=== PATIENT | male | born 1965 | race Hispanic/Latino ===

== ENCOUNTER 2019-01-13 20:02 | Emergency (ER) | payer SELFPAY ==
[2019-01-13] MEDS ORDERED: NA CHLORIDE 0.9% 1,000 ML ONE (21:33)
[2019-01-13 21:58] LABS: Absolute Lymphocytes (CBC) 2.1 K/uL (0.7-4.9); Absolute Neutrophil 6.4 K/uL (1.8-8.0); Basophils % 0.5 % (0-1.3); Eosinophils % 1.1 % (0-4.4); Lymphocytes % 21.4 % (15.3-44.8); MPV 10.8 fL (7.6-11.3); Monocytes % 10.2 % (3.3-12.3); RBC Red Blood Cell Count 4.67 M/uL (4.33-5.43)
[2019-01-13 22:02] LABS: Albumin 3.8 g/dL (3.4-5.0); Bilirubin Direct 0.1 mg/dL (0-0.2); Bilirubin Total 0.7 mg/dL (0.2-1.0); Potassium 3.9 mmol/L (3.5-5.1); Protein, Total 8.5 g/dL (6.4-8.2)
--- NOTE | 2019-01-14 02:31 | EDPHYS ---
Physician Documentation [facility] Name: Ralph Knight Age: 53 yrs Sex: Male : 1965 Arrival Date: 01/13/2019 Time: 20:03 Bed 6 Private MD: ED Physician Willy Sprague HPI: 01/13 21:10 This 53 yrs old Male presents to ER via Ambulatory with complaints of pkl Abdominal Pain - radiating to back. 21:10 The patient presents with abdominal pain in the lower abdomen, right lower quadrant, in pkl the left lower quadrant. Onset: The symptoms/episode began/occurred 3 day(s) ago. The symptoms radiate to back. Associated signs and symptoms: Pertinent positives: diarrhea, nausea. Historical: - Allergies: 20:09 No Known Allergies; lp1 - Home Meds: 20:09 None [Active]; lp1 - PMHx: 20:09 None; lp1 - PSHx: 20:09 None; lp1 - Immunization history:: Adult Immunizations up to date. - Social history:: Smoking status: Patient/guardian denies using tobacco. - Ebola Screening: : No symptoms or risks identified at this time. ROS: 21:10 Eyes: Negative for injury, pain, redness, and discharge, ENT: Negative for injury, pkl pain, and discharge, Neck: Negative for injury, pain, and swelling, Cardiovascular: Negative for chest pain, palpitations, and edema, Respiratory: Negative for shortness of breath, cough, wheezing, and pleuritic chest pain. 21:10 Abdomen/GI: Positive for abdominal pain, of the right lower quadrant and left lower quadrant. 21:10 Back: Positive for pain at rest. 21:10 : Negative for urinary symptoms. 21:10 MS/extremity: Negative for acute changes. 21:10 Skin: Negative for rash. 21:10 Neuro: Negative for altered mental status. Exam: 21:10 Head/Face: Normocephalic, atraumatic. Eyes: Pupils equal round and reactive to light, pkl extra-ocular motions intact. Lids and lashes normal. Conjunctiva and sclera are non-icteric and not injected. Cornea within normal limits. Periorbital areas with no swelling, redness, or edema. ENT: Nares patent. No nasal discharge, no septal abnormalities noted. Tympanic membranes are normal and external auditory canals are clear. Oropharynx with no redness, swelling, or masses, exudates, or evidence of obstruction, uvula midline. Mucous membranes moist. Neck: Trachea midline, no thyromegaly or masses palpated, and no cervical lymphadenopathy. Supple, full range of motion without nuchal rigidity, or vertebral point tenderness. No Meningismus. Chest/axilla: Normal chest wall appearance and motion. Nontender with no deformity. No lesions are appreciated. Cardiovascular: Regular rate and rhythm with a normal S1 and S2. No gallops, murmurs, or rubs. Normal PMI, no JVD. No pulse deficits. Respiratory: Lungs have equal breath sounds bilaterally, clear to auscultation and percussion. No rales, rhonchi or wheezes noted. No increased work of breathing, no retractions or nasal flaring. 21:10 Abdomen/GI: Bowel sounds: normal, Palpation: soft, mild abdominal tenderness, in the right lower quadrant and left lower quadrant. 21:10 Back: pain, that is moderate, of the lower back. 21:10 : Exam negative for acute changes. 21:10 Musculoskeletal/extremity: Exam is negative for acute changes. 21:10 Skin: Exam negative for rash. 21:10 Neuro: Orientation: is normal, Mentation: is normal, Cranial nerves: grossly normal, Motor: is normal. Vital Signs: 20:09 BP 150 / 85; Pulse 73; Resp 18; Temp 98.8(O); Pulse Ox 98% on R/A; Weight 108.86 kg; lp1 Height 5 ft. 7 in. (170.18 cm); Pain 7/10; 22:04 BP 132 / 81; Pulse 65; Resp 18; Pulse Ox 97% ; tl2 22:53 BP 129 / 79; Pulse 65; Resp 18; Pulse Ox 97% on R/A; tl2 23:44 BP 128 / 79; Pulse 62; Resp 18; Pulse Ox 96% on R/A; tl2 01/14 00:30 BP 128 / 80; Pulse 62; Resp 18; Pulse Ox 96% on R/A; ea 01:58 BP 118 / 69; Pulse 70; Resp 18; Pulse Ox 96% on R/A; tl2 01/13 20:09 Body Mass Index 37.59 (108.86 kg, 170.18 cm) lp1 MDM: 01/13 21:04 Patient medically screened. pkl 01/14 02:28 Data reviewed: vital signs, nurses notes, lab test result(s), radiologic studies, CT pkl scan. 01/13 21:00 Order name: Basic Metabolic Panel; Complete Time: 22:30 tl2 01/13 21:00 Order name: CBC with Diff; Complete Time: 22:30 tl2 01/13 21:00 Order name: Creatinine for Radiology; Complete Time: 22:30 tl2 01/13 21:00 Order name: Hepatic Function; Complete Time: 22:30 tl2 01/13 21:00 Order name: Lipase; Complete Time: 22:30 tl2 01/13 21:10 Order name: CT Abd/Pelvis - W/Contrast pkl 01/13 21:00 Order name: IV Saline Lock; Complete Time: 21:01 tl2 01/13 21:00 Order name: Labs collected and sent; Complete Time: 21:01 tl2 Administered Medications: 01/13 21:26 Drug: NS 0.9% 1000 ml Route: IV; Rate: 125 ml/hr; Site: right antecubital; tl2 01/14 02:44 Follow up: IV Status: Completed infusion; IV Intake: 600ml tl2 Disposition: 01/14/19 02:30 Discharged to Home. Impression: Abdominal pain. Ureteritis. - Condition is Stable. - Prescriptions for Ultram 50 mg Oral Tablet - take 1 tablet by ORAL route every 8 hours As needed; 20 tablet. Cipro 500 mg Oral Tablet - take 1 tablet by ORAL route every 12 hours for 7 days; 14 tablet. - Medication Reconciliation Form, Thank You Letter, Antibiotic Education, Prescription Opioid Use form. - Follow up: Manuel Fleming MD; When: 2 - 3 days; Reason: Re-evaluation by your physician. - Problem is new. - Symptoms have improved. Signatures: Dispatcher [employer] EDWilly Farrell MD MD pkl Purvi Walker RN RN lp1 Damaris Black RN RN tl2 Corrections: (The following items were deleted from the chart) 02:44 02:30 01/14/2019 02:30 Discharged to Home. Impression: Abdominal pain. Ureteritis. tl2 Condition is Stable. Forms are Medication Reconciliation Form, Thank You Letter, Antibiotic Education, Prescription Opioid Use. Follow up: Manuel Fleming; When: 2 - 3 days; Reason: Re-evaluation by your physician. Problem is new. Symptoms have improved. pkl
--- NOTE | 2019-01-14 02:31 | ER ---
Nurse's Notes [facility] Name: Ralph Knight Age: 53 yrs Sex: Male : 1965 Arrival Date: 01/13/2019 Time: 20:03 Bed 6 Private MD: Diagnosis: Abdominal pain. Ureteritis Presentation: 01/13 20:08 Presenting complaint: Patient states: General abdominal pain radiating to back since lp1 Saturday, worse after eating; States some nausea and diarrhea; Denies fever. Transition of care: patient was not received from another setting of care. Onset of symptoms was January 13, 2019. Risk Assessment: Do you want to hurt yourself or someone else? Patient reports no desire to harm self or others. Initial Sepsis Screen: Does the patient meet any 2 criteria? No. Patient's initial sepsis screen is negative. Does the patient have a suspected source of infection? No. Patient's initial sepsis screen is negative. Care prior to arrival: None. 20:08 Method Of Arrival: Ambulatory lp1 20:08 Acuity: TOO 3 lp1 Historical: - Allergies: 20:09 No Known Allergies; lp1 - Home Meds: 20:09 None [Active]; lp1 - PMHx: 20:09 None; lp1 - PSHx: 20:09 None; lp1 - Immunization history:: Adult Immunizations up to date. - Social history:: Smoking status: Patient/guardian denies using tobacco. - Ebola Screening: : No symptoms or risks identified at this time. Screenin:09 Abuse screen: Denies threats or abuse. Denies injuries from another. Nutritional lp1 screening: No deficits noted. Tuberculosis screening: No symptoms or risk factors identified. Fall Risk None identified. Assessment: 21:01 General: Appears in no apparent distress. uncomfortable, Behavior is calm, cooperative, tl2 appropriate for age. Pain: Complains of pain in right lower quadrant and left lower quadrant Pain radiates to left low back and right low back Pain currently is 5 out of 10 on a pain scale. Neuro: Level of Consciousness is awake, alert, obeys commands, Oriented to person, place, time, situation. Cardiovascular: Denies chest pain. Respiratory: Airway is patent Respiratory effort is even, unlabored, Respiratory pattern is regular, symmetrical. GI: Bowel sounds present X 4 quads. Abd is soft Reports lower abdominal pain, nausea, Patient currently denies vomiting, Pain is worse after eating. Derm: Skin is pink, warm \T\ dry. 22:04 Reassessment: Patient appears in no apparent distress at this time. Patient and/or tl2 family updated on plan of care and expected duration. Pain level reassessed. Patient is alert, oriented x 3, equal unlabored respirations, skin warm/dry/pink. awaiting CT scan. 01/14 00:51 Reassessment: Patient appears in no apparent distress at this time. Patient and/or tl2 family updated on plan of care and expected duration. Pain level reassessed. Patient is alert, oriented x 3, equal unlabored respirations, skin warm/dry/pink. pt returned from CT, ambulatory to restroom. 01:27 Reassessment: Patient and/or family updated on plan of care and expected duration. Pain ea level reassessed. Patient is alert, oriented x 3, equal unlabored respirations, skin warm/dry/pink. awaiting on CT results. 02:43 Reassessment: Patient appears in no apparent distress at this time. Patient and/or tl2 family updated on plan of care and expected duration. Pain level reassessed. Patient is alert, oriented x 3, equal unlabored respirations, skin warm/dry/pink. pt verbalized understanding of discharge instructions, need for follow up and prescription usage Patient states feeling better. Vital Signs: 01/13 20:09 BP 150 / 85; Pulse 73; Resp 18; Temp 98.8(O); Pulse Ox 98% on R/A; Weight 108.86 kg; lp1 Height 5 ft. 7 in. (170.18 cm); Pain 7/10; 22:04 BP 132 / 81; Pulse 65; Resp 18; Pulse Ox 97% ; tl2 22:53 BP 129 / 79; Pulse 65; Resp 18; Pulse Ox 97% on R/A; tl2 23:44 BP 128 / 79; Pulse 62; Resp 18; Pulse Ox 96% on R/A; tl2 01/14 00:30 BP 128 / 80; Pulse 62; Resp 18; Pulse Ox 96% on R/A; ea 01:58 BP 118 / 69; Pulse 70; Resp 18; Pulse Ox 96% on R/A; tl2 01/13 20:09 Body Mass Index 37.59 (108.86 kg, 170.18 cm) lp1 ED Course: 01/13 20:03 Patient arrived in ED. am2 20:09 Triage completed. lp1 20:09 Arm band placed on right wrist. lp1 21:00 Damaris Black RN is Primary Nurse. tl2 21:01 Patient has correct armband on for positive identification. Bed in low position. Call tl2 light in reach. Side rails up X 1. 21:01 Inserted saline lock: 20 gauge in right antecubital area, using aseptic technique. tl2 Blood collected. 21:04 Willy Sprague MD is Attending Physician. pkl 21:42 Oral contrast reported to be complete. vm2 21:42 Inserted saline lock: 22 gauge in left antecubital area, using aseptic technique. 20 g tl2 in R AC infiltrated, removed and pressure dressing placed. 01/14 00:22 CT completed. Patient tolerated procedure well. Patient moved to CT via wheelchair. Patient moved back from CT. 00:49 CT Abd/Pelvis - W/Contrast In Process Unspecified. EDMS 02:29 Manuel Fleming MD is Referral Physician. pkl 02:43 No provider procedures requiring assistance completed. IV discontinued, intact, tl2 bleeding controlled, No redness/swelling at site. Pressure dressing applied. Administered Medications: 01/13 21:26 Drug: NS 0.9% 1000 ml Route: IV; Rate: 125 ml/hr; Site: right antecubital; tl2 01/14 02:44 Follow up: IV Status: Completed infusion; IV Intake: 600ml tl2 Intake: 02:44 IV: 600ml; Total: 600ml. tl2 Outcome: 02:30 Discharge ordered by . pkl 02:43 Discharged to home ambulatory. tl2 02:43 Condition: stable 02:43 Discharge instructions given to patient, Instructed on discharge instructions, follow up and referral plans. medication usage, Demonstrated understanding of instructions, follow-up care, medications, Prescriptions given X 2. 02:44 Patient left the ED. tl2 Signatures: Dispatcher [employer] EDMS Willy Sprague MD MD pkl Vasu Gabriel Purvi Walker RN RN lp1 Damaris Black RN RN tl2 Shayy Mcgarry Doreen Preciado vm2 Johnson, Michelle, RN RN ea
--- NOTE | 2019-01-14 12:29 | RAD REPORT ---
EXAM DESCRIPTION: CT - Abdomen Pelvis W Contrast - 01/14/2019 4:40 am CLINICAL HISTORY: The patient is 53 years old and is Male; ABD PAIN TECHNIQUE: Axial computed tomography images of the abdomen and pelvis with intravenous contrast. S agittal and coronal reformatted images were created and reviewed. This CT exam was performed using one or more of the following dose reduction techniques: automated exposure control, adjustment of t he mA and/or kV according to patient size, and/or use of iterative reconstruction technique. COMPARISON: No relevant prior studies available. FINDINGS: LUNG BASES: Unremarkable. No mass. No consolidation. ABDOMEN: LIVER: The liver is mildly fatty. A 9 mm low attenuating focus within the left hepatic lobe is present which is too small accurately characterize, but statistically represents a cyst. A few small hyperattenuating foci are noted within the right and left hepatic lobes which are no longer present on the venous phase images suggestive of transient hepatic attenuation difference. GALLBLADDER AND BILE DUCTS: No calcified stones. No ductal dilation. PANCREAS: No ductal dilation. No mass. SPLEEN: Unremarkable. ADRENALS: Unremarkable. No mass. KIDNEYS AND URETERS: Mild urothelial thickening with associated periureteral stranding specifica lly involving the entire left ureter is present. Minimal urothelial thickening and stranding involvin g the proximal right ureter is also noted. The kidneys enhance symmetrically. No obstructing calculus is seen. On the delayed phase images, contrast is noted within the visualized proximal ureters. An e xophytic 9 mm low attenuating left renal lesion is present. STOMACH AND BOWEL: The stomach is decompressed. The small bowel is normal in caliber. Contrast i s present throughout the colon. There is no mucosal thickening or evidence of bowel obstruction. PELVIS: APPENDIX: The appendix is normal in caliber without surrounding inflammation. BLADDER: Unremarkable. No mass. REPRODUCTIVE: Unremarkable as visualized. ABDOMEN and PELVIS: INTRAPERITONEAL SPACE: Unremarkable. No free air. No significant fluid collection. BONES/JOINTS: No acute fracture. SOFT TISSUES: The soft tissues are normal. VASCULATURE: No aneurysm. LYMPH NODES: Unremarkable. No enlarged lymph nodes. IMPRESSION: 1. Findings suggest mild ureteritis involving the proximal right ureter and entire lef t ureter. There is no definite obstructing lesion or calculus. 2. Low attenuating left renal lesion. ACR White Paper guidelines (Summer, et al. JACR 2010; 7(10): 754-73) suggest follow-up abdominal CT or MRI in 3-6 months. Electronically signed by: Katty Olsen MD 01/14/2019 12:57 AM CDT Due to temporary technical issues with the PACS/Fluency reporting system, reports are being signed by the in house radiologist as a courtesy to ensure prompt reporting. The interpreting radiologist is f ully responsible for the content of the report.
== END 2019-01-14 02:44 | disposition home or self-care (01) ==
LOC: ER 20:02
DX: N28.89 Other specified disorders of kidney and ureter (principal)
CPT/HCPCS: 36415; 74177; 80048; 80076; 83690; 85025; 96360; 96361; 99284; J7030; Q9967